=== PATIENT | female | born 1990 | race Caucasian/White ===

== ENCOUNTER → 2016-07-11 | Day surgery (SDC) | payer BC ==
[2016-07-06 16:02] VITALS: BMI 38.0
[~2016-07-11] VITALS: Ht 165.1 cm; Wt 104.5 kg
[~2016-07-11] MED LIST: ACETAMINOPHEN 325 MG TAB ONE; ATROPINE SULFATE 0.1 MG/ML 5ML SYR IV PRN; BUSP-8 PO; CHOL2000 PO; DICL1GEL12 TOP; EpHEDrine SULFATE INJ 50 MG/ML AMP IV PRN; FENTANYL CITRATE INJ 50 MCG/1 ML 2 ML VIAL IV PRN; FENTANYL CITRATE INJ 50 MCG/1 ML 2 ML VIAL ONE; ISOPROTERENOL 200 MCG / 50ML D5W IV ONE; LACTATED RINGER'S 1000ML 1,000 ML IV SCH; LEVOIUD PV; LIDOCAINE HCL 2% 2 ML VIAL (20MG/ML) ONE; METO25TA56 PO; MIDAZOLAM HCL 1 MG/ML 2ML VIAL ONE; MULT-506 PO; NURSING VERBAL MED ORDER ONE; ONDANSETRON INJ 2 MG/ML 2 ML VIAL IV PRN; PARO1TAB27 PO; PROPOFOL IV EMULSION 10 MG/ML 100 ML VIAL IV ONE; PROPOFOL IV EMULSION 10 MG/ML 20 ML VIAL IV ONE; PRVHFAIN INH; SCOPOLAMINE 1.5 MG TDSY TD ONE; SODIUM CHLORIDE 0.9% 1000ML 250 ML IV SCH
[2016-07-11 06:45] VITALS: BP 112/72; PULSE 75; TEMP 36.4; O2SAT 99; Ht 165.1 cm; Wt 104.5 kg
--- NOTE | 2016-07-11 08:19 | History & Physical Bridge Note ---
H&P Re-Evaluation Bridge Note: I have examined the patient, reviewed the History & Physical and in the interval since the performance of the History & Physical I have noted the following changes of clinical significance: No changes noted
--- NOTE | 2016-07-11 12:06 | [facility] Post Operative Brief Note ---
Immediate Operative Summary Operative Date Jul 11, 2016. Pre-Operative Diagnosis palpitations, svt Post-Operative Diagnosis palpitations, no sustained inducible SVT; did induce a non-sustained inappropriate sinus tachycardia Procedure(s) Performed eps, LA pacing, C/S catherter insertion, isoprel infusion Surgeon malia pérez Medical Biller Coder Surgeon(s) none Estimated Blood Loss <5cc Findings none Fluids (cc crystalloids) 900cc Specimens None Drains none Anesthesia monitored anesthetic sedation 10mg versed, 500mcg fentanyl, 900mg propofol Complication(s) None Disposition laborer pipelines holding
--- NOTE | 2016-07-11 12:09 | Anesthesiology Progress Note ---
Anesthesia Post Op Note Date & Time Jul 11, 2016 at 12:09 Vital Signs Pain Intensity: 0 Vital Signs Past 12 Hours Date Time Temp Pulse Resp B/P Pulse Ox O2 Delivery O2 Flow Rate FiO2 07/11/16 12:00 90 18 111/81 97 Room Air 07/11/16 11:40 87 18 124/74 97 Room Air 07/11/16 11:30 99 18 128/82 97 Room Air 07/11/16 11:20 110 16 120/79 98 Room Air 07/11/16 06:45 36.4 75 16 112/72 99 Room Air Notes Mental Status: alert / awake / arousable, participated in evaluation Pt Amnestic to Procedure: Yes Nausea / Vomiting: adequately controlled Pain: adequately controlled Airway Patency, RR, SpO2: stable & adequate BP & HR: stable & adequate Hydration State: stable & adequate Anesthetic Complications: no major complications apparent
--- NOTE | 2016-07-11 12:12 | Discharge Instructions ---
Discharge Instructions Visit Reason for Visit: Supra Ventricular Tachycardia Discharge Discharge Diagnosis / Problem: palpitations Discharge Goals Goal(s): Improve function Medications Stopped Medications Name(s): restart your metoprolol 50mg BID Activity Recommendations Lifting Limitations: no more than 10 pounds Exercise/Sports Limitations: gradually increase as tolerated May Resume Sexual Activity: after two weeks Shower/Bathe: tomorrow Driving or Machine Use: resume 1 day after discharge Anesthesia . Post Anesthesia Instructions: If you have had General Anesthesia or IV Sedation: * Do not drive today. * Resume driving when surgeon permits. * Do not make important decisions or sign legal documents today. * Call surgeon for: 1. Temperature elevations greater than 101 degrees F. 2. Uncontrollable pain. 3. Excessive bleeding. 4. Persistent nausea and vomiting. 5. Medication intolerance (nausea, vomiting or rash). * For nausea and vomiting use only clear liquids such as: tea, soda, bouillon until nausea subsides, then gradually increase diet as tolerated. * If you have any concerns or questions, call your surgeon's office. If physician is unavailable and it is an emergency, call 911 or go to the nearest emergency room. . Diet Recommendations Recommended Home Diet: special diet (increase salt/sodium intake; increase fluid water at least 64 ounces a day, gatarade a day, only limit to 1 cup coffee /tea) Procedures Procedures Performed: eps, LA pacing, C/S catherter insertion, isoprel infusion Pending Studies Studies pending at discharge: no Medical Emergencies . Who to Call and When: Medical Emergencies: If at any time you feel your situation is an emergency, please call 911 immediately. . Non-Emergent Contact Non-Emergency issues call your: Medical Dermatologist . . "Provider Documentation" section prepared by Summer Huynh.
[2016-07-11 14:30] VITALS: BP 114/74; PULSE 85; O2SAT 98
--- NOTE | 2016-07-20 08:51 | OPERATIVE REPORT ---
DATE OF OPERATION: 07/11/2016 PREOPERATIVE DIAGNOSIS: Palpitations. POSTOPERATIVE DIAGNOSIS: Same, inappropriate sinus tachycardia. PROCEDURE: Electrophysiology study, Isuprel infusion, coronary sinus catheter insertion with LA pacing. SURGEON: Dr. Summer Huynh. PRINCIPAL SYSTEMS ARCHITECT: None. ANESTHESIA: Monitored anesthetic care given via anesthesiology, total of 10 mg of Versed, 500 mcg of Fentanyl mcg, 900 mg of Propofol. IV FLUIDS: 900 mL. START TIME: 9:04. END TIME: 11:07. CONDITION: Stable. COMPLICATIONS: None. URINE OUTPUT: Not applicable. SPECIMENS: None. FINDINGS: See below. DRAINS: None. BLOOD LOSS: Less than 5 mL. INDICATIONS: This is a 25-year-old female who I have been seeing over the past year. She has a history of paroxysmal atrial tachycardia which she was status post ablation in 2007 with a redo later in 2007. The atrial tachycardia appeared to be very close to the AV node however there were times of intermittent complete heart block. Over the past year and half, she has had significant palpitations and thing have been worsening refractory to medications, mostly due to hypotension, so we can not increase the dose so she is recommended a repeat electrophysiology study with possible ablation. CONSENT: Consent was obtained prior to the patient going into the electrophysiology lab. The patient was explained the risks, benefits, alternatives to the procedure. Risks include but not limited to sudden cardiac , cardiac arrhythmias, cerebrovascular accident, myocardial infarction, injury to the blood vessels, chamber of the heart or the [place] electrical system where she would need a permanent pacemaker, bleeding and infection. The patient understood these risks and agreed to the procedure as planned. Informed consent was obtained. DESCRIPTION OF THE PROCEDURE: The patient was brought into the electrophysiology lab in a fasting state. She was connected to continuous cardiac monitoring. A timeout was performed to ensure patient's identity and procedure correctly. The patient was prepped and draped over the bilateral groins in normal surgical standard fashion. Monitored anesthetic care was given throughout the procedure for patient's comfort lever via anesthesiology. Henderson precautions were maintained throughout the procedure. 10 mL of 1% lidocaine were given in the bilateral groins for local anesthesia. Using the modified Seldinger technique, venous access was obtained in the following manner. The left femoral vein had a 7-Montserratian sheath followed by a [employer] Decapolar coronary sinus catheter that was positioned in the coronary sinus. A 7-Montserratian sheath followed by a Hisser quadripolar catheter positioned over the His bundle. A 6-Montserratian sheath with a Johnnie quad diagnostic catheter positioned into the right ventricular apex. The right femoral vein had a 6-Montserratian sheath with a quad diagnostic catheter positioned in the high right atrium. Electrophysiology study was performed with the following findings: Baseline measurements, the WA interval is 172 milliseconds, QRS 76 milliseconds, QT 370 milliseconds, the sinus cycle length was 678 milliseconds, AH 72 milliseconds, HV 40 milliseconds. With atrial extrastimuli with atrial burst pacing the AV Wenckebach was found to be 360 milliseconds. With atrial extrastimuli from the high rate atrium, the AV node ERP was found to be 600/320 and 400/320. The atrial ERP was 400/270 and 600/280. With right ventricular extrastimuli the right ventricular ERP was 600/200 and 400/200. We did a series of atrial burst pacing from the high rate atrium as well as from the coronary sinus catheter all the way down to 200 without any initiation of an SVT. I gave up to triples from the high right atrium as well the coronary sinus catheter without any induction of SVT or any evidence of AH jump. We then started 2 of Isuprel and we got an adequate Isuprel response. We found an AV Wenckebach to be 280 milliseconds. The atrial ERP was 400/210 with AV node ERP less than or equal to that. There was at one point with atrial burst pacing from the high right atrium that I did induce a tachycardia with the cycle length of 220 milliseconds; however, this was nonsustained, but did last about 20 seconds. I was never able to reinduce this. I gave Isuprel atrial burst pacing from the high rate atrium and the coronary sinus without any induction of SVT as well as up to triples from the high right atrium and the coronary sinus without any induction of SVT. It was at this juncture that we then stopped the Isuprel and tried induction of any SVT with Isuprel washout and I still was not able to with atrial burst pacing from the high right atrium and coronary sinus all the way down to 200 as well as extrastimuli up to triples from the high right atrium and coronary sinus. All catheters were removed from the heart. The manual compression was used to pull the sheaths and obtain hemostasis. CONCLUSION: 1. Inappropriate sinus tachycardia was nonsustained and never reinduced. 2. Normal arterioventricular koffi function. 3. No evidence of dual arterioventricular koffi pathway. PLAN: Monitor patient post sedation. Recommend patient to increase her fluid intake on a daily basis as well as some salt intake. She can continue to try the metoprolol, although we are limited due to her hypotension with this. Also recommend compression stockings and lifestyle modifications. She will follow up in my office in 1 month. I attest to the content of the Intraoperative Record and any orders documented therein. Any exceptions are noted below. LEDAD
== END | disposition home or self-care (01) ==
LOC: C.ACU 06:29
PROVIDERS: ATTEND Internal Medicine
DX: I47.1 Supraventricular tachycardia (principal); J45.998 Other asthma; E66.9 Obesity, unspecified; Z68.38 Body mass index [BMI] 38.0-38.9, adult; F32.9 Major depressive disorder, single episode, unspecified; F41.9 Anxiety disorder, unspecified